=== PATIENT | female | born 1960 | race Hispanic/Latino ===

== ENCOUNTER 2018-01-29 08:46 | Outpatient (CLI) | payer OTHER ==
--- NOTE | 2018-01-29 10:07 | RAD ---
LUMBAR SPINE SERIES THREE VIEWS: INDICATIONS: Mid low back pain. FINDINGS: There is no evidence of a compression fracture. No subluxation. There is multilevel mild endplate d egenerative change and multilevel degenerative facet sclerosis. Focal lucency overlying the left jamie um may relate to overlying bowel content. Punctate calcification is seen overlying the right upper q uadrant. There is stool within this region, related to the colon. Findings are not further localize d. Phleboliths are seen overlying the pelvis. IMPRESSION: Mild degenerative change of the lumbar spine without acute osseous abnormality visualized. POS: DIONY
--- NOTE | 2018-01-29 10:14 | RAD ---
SACROILIAC JOINT SERIES THREE VIEWS: INDICATIONS: Low back pain. FINDINGS: The sacroiliac joints reveal mild sclerosis and osteophytosis. Otherwise, no acute osseous abnormali ty visualized. 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 POS: DIONY
== END 2018-01-29 08:47 | disposition home or self-care (01) ==
LOC: SCSRAD 08:46
PROVIDERS: ATTEND Family Medicine
DX: M46.1 Sacroiliitis, not elsewhere classified (principal); M47.896 Other spondylosis, lumbar region; M53.3 Sacrococcygeal disorders, not elsewhere classified
CPT/HCPCS: 72100; 72202